=== PATIENT | male | born 1940 | race Caucasian/White ===

== ENCOUNTER 2017-05-25 10:53 | Outpatient (RCR) | payer MEDICARE ==
[2017-04-28 09:02] LABS: PLATELET COUNT, AUTOMATED 157 K/uL (150-450)
[~2017-05-25 10:53] MED LIST: ALB18R; ASCO-182 PO; ASCO-201 PO; ASPI81TA94 PO; BIMA2.5D5 OP; CALC500T6 PO; CALC600T72 PO; CHOL200074 PO; CIPR-215 PO; CIPR-345 PO; COMODPT OD; DOCU-416 PO; DOCU100C49 PO; GOLYTE PO; LATA2.5D5 OU; LEVO-85 PO; METR-160 PO; MULT-28; OM-31CAP PO; OMEG-11 PO; ONDA4TAB97 PO; OXYC-865 PO; PHEN200T32 PO; PSYL0.5210 PO; SAW450CA3 PO; TAMS0.4C25 PO; TAMS0.4C70 PO
== END 2017-06-20 ==
LOC: RAON 10:53
PROVIDERS: ATTEND Radiology Radiation Oncology
DX: Z51.0 Encounter for antineoplastic radiation therapy (principal); C61 Malignant neoplasm of prostate; J45.909 Unspecified asthma, uncomplicated; Z87.891 Personal history of nicotine dependence; R53.83 Other fatigue
CPT/HCPCS: 36415; 77332; 77385; 77790; 81001; 84153; 85025; G0463; 77290; 77295; 77300; 77336; 77470; 82040; 82247; 82310; 82374; 82435; 82565; 82947; 84075; 84132; 84155; 84295; 84450; 84460; 84520; 99212

== ENCOUNTER 2017-09-07 09:16 | Outpatient (RCR) | payer MEDICARE ==
[~2017-09-07 09:16] MED LIST changes: +CALC1TAB32 PO; +VIT-9 PO
[2017-09-07 09:21] VITALS: BP 129/90
[2017-09-08] MEDS ORDERED: DORZ10DR21 OP (13:47)
[2017-09-08] MEDS ORDERED: CHOL100059 PO (14:18)
[2017-09-08] MEDS ORDERED: CALC600T63 PO (14:18)
== END 2017-09-17 09:24 | disposition home or self-care (01) ==
LOC: SPU 09:16
PROVIDERS: ATTEND Nurse Practitioner Family
DX: C61 Malignant neoplasm of prostate (principal)
CPT/HCPCS: 36415; 84153; G0463; 99212

== ENCOUNTER → 2017-12-14 | Outpatient (CLI) | payer MEDICARE ==
[~2017-12-14] MED LIST changes: +CALC600T63 PO; +CHOL100059 PO; +DORZ10DR24 OP
[2017-12-14 10:30] VITALS: BP 162/90
== END ==
LOC: SPU 10:17
PROVIDERS: ATTEND Urology
DX: C61 Malignant neoplasm of prostate (principal)
CPT/HCPCS: 36415; 84153

== ENCOUNTER 2018-03-08 10:30 | Outpatient (RCR) | payer MEDICARE ==
[~2018-03-08 10:30] MED LIST changes: -METR-160 PO; +METR500T54 PO
[2018-03-08 10:53] VITALS: BP 160/76
== END 2018-04-20 11:02 | disposition home or self-care (01) ==
LOC: SPU 10:30
PROVIDERS: ATTEND Nurse Practitioner Family
DX: C61 Malignant neoplasm of prostate (principal)
CPT/HCPCS: 36415; 84153; G0463; 99212

== ENCOUNTER → 2018-08-09 | Outpatient (CLI) | payer MEDICARE ==
[~2018-08-09] MED LIST changes: -ALB18R; +ALB18R INH; +ASCO-246 PO; +ASCO-342 PO; +ASPI-1471 PO; -BIMA2.5D5 OP; +BIMA2.5D5 OU; +CALC-29 PO; +CHOL200051 PO; -COMODPT OD; +COMODPT OU; -DORZ10DR24 OP; +DORZ10DR24 OU; +LEUP11.26 IM; +METR500T15 PO; -METR500T54 PO; +MULT-60 PO; +OMEG-36 PO; +VIT1CAPS34 PO
== END ==
LOC: SPU 13:51
PROVIDERS: ATTEND Urology
DX: C61 Malignant neoplasm of prostate (principal)
CPT/HCPCS: 36415; 84153

== ENCOUNTER → 2018-08-17 | Outpatient (CLI) | payer MEDICARE ==
[2018-08-17 12:01] LABS: PLATELET COUNT, AUTOMATED 196 K/uL (150-450)
== END ==
LOC: LAB 11:45
PROVIDERS: ATTEND Family Medicine
DX: I10 Essential (primary) hypertension (principal)
CPT/HCPCS: 36415; 82310; 82374; 82435; 82565; 82947; 84132; 84295; 84520; 85025

== ENCOUNTER 2018-09-27 14:46 | Emergency (ER) | payer MEDICARE ==
--- NOTE | 2018-09-27 15:11 | ER Report ---
History and Physical Time Seen By MD: 15:11 Hx. of Stated Complaint: PATIENT STATES THAT ABOUT TWO WEEKS HE "BUMPPED HIS LEFT FLOREZ ON SOMETHING" STATES THAT IT HASN'T REALLY BOTHERED HIM BUT NOW IT STARTED TO HURT WHEN HE WALKS HPI/ROS CHIEF COMPLAINT: Swelling to left lower extremity HISTORY OF PRESENT ILLNESS: 77-year-old male patient presents to emergency room with complaint of swelling to the left lower extremity. Patient states that he bumped his leg 2 weeks ago. He states that he noticed it later that night with a scab. He states that he didn't do anything about it and a few days later scabbed came off but noted that it started to swell. Patient states that it has become tender over the last couple of days. He denies any fevers, chills, nausea, vomiting or diarrhea. Patient states the pain is worse with palpation as well as when he ambulates on it. Patient has not taken any medication for this. REVIEW OF SYSTEMS: Respiratory: No cough, no dyspnea. Cardiovascular: No chest pain, no palpitations. Gastrointestinal: No vomiting, no abdominal pain. Musculoskeletal: No back pain. Allergies: Coded Allergies: No Known Drug Allergies (Unverified , 08/24/16) Home Meds Active Scripts Cephalexin 500 Mg Tab (KEFLEX 500 MG TAB) 500 Mg Tablet, 500 MG PO Q6H, #28 TAB Prov:HAWK GILES FILER FINISH 09/27/18 Albuterol Sulfate (VENTOLIN HFA) 18 Gm Inh, 1-2 PUFF INH 3-4XD for 90 Days, #3 INH 9 Refills Prov:MARIBEL LONDON MD 08/17/18 Reported Medications Dorzolamide Hcl (DORZOLAMIDE HCL) 10 Ml Drops, 10 ML OP 09/27/18 Vit A/Vit C/Vit E/Zinc/Copper (PRESERVISION AREDS SOFTGEL) 1 Each Capsule, 1-2 CAP PO DAILY Pt alternates everyother day, takes 1 cap one day and then 2 caps the next. 06/02/18 Ascorbic Acid (VITAMIN C WITH NIRMALA HIPS) 500 Mg Tablet, 1 TAB PO DAILY 06/02/18 Cholecalciferol (Vitamin D3) (D-2000) 2,000 Unit Capsule, 1 CAP PO DAILY, CAPSULE 06/02/18 Calcium Carbonate/Vitamin D3 (Calcium 600 + Vit D 800 Tab) 1 Each Tablet, 1 TAB PO DAILY 06/02/18 Multivit-Min/FA/Lycopen/Lutein (Centrum Silver Men Tablet) 300 Mcg-600 Mcg-300 Mcg Tablet, 1 TAB PO DAILY 06/02/18 Aspirin (ASPIR 81) 81 Mg Tablet.dr, 1 TAB PO QDAY, TAB 06/02/18 [place]-3 Fatty Acids/Fish Oil (OMEGA 3 FISH OIL SOFTGEL) 1 Each Capsule.dr, 1 CAP PO QDAY 1040 mg daily 06/02/18 Dorzolamide Hcl (DORZOLAMIDE HCL) 10 Ml Drops, 1 DROP OU BID 09/08/17 Bimatoprost (LUMIGAN) 2.5 Ml Drops, 1 DROP OU DAILY 06/04/16 Brimonidine Tartrate/Timolol (Combigan Eye Drops) 5 Ml Drops, 1 DROP OU BID 01/02/12 Past Medical/Surgical History Patient has a past medical history of asthma, pneumonia, H. pylori, ulcers, collarbone fracture, ankle fracture, arm pain, eczema, alcohol use, prostate cancer. Patient has surgical history of eye surgery for retinal detachment, bilateral cataracts, rhinoplasty, biopsy. Patient has a family medical history of cancer, CAD. Reviewed Nurses Notes: Yes Hx Smoking: Yes (7-8 YEARS 2 PPD, quit 1976) Smoking Status: Former Smoker Hx Substance Use Disorder: No Hx Alcohol Use: Yes Constitutional Vital Sign - Last 24 Hours 09/27/18 09/27/18 09/27/18 09/27/18 15:05 15:05 15:16 15:30 Temp 98.1 Pulse 60 60 Resp 18 B/P (MAP) 158/98 158/98 (118) 154/94 (114) Pulse Ox 92 94 O2 Delivery Room Air 09/27/18 09/27/18 09/27/18 09/27/18 15:46 16:00 16:16 16:30 Pulse 59 ??? B/P (MAP) 138/94 (109) ???/??? (1664) Pulse Ox 91 09/27/18 09/27/18 09/27/18 16:30 17:00 17:30 Pulse 69 70 ??? B/P (MAP) ???/??? (1664) ???/??? (1664) ???/??? (1665) Pulse Ox 96 93 Physical Exam General Appearance: The patient is alert, has no immediate need for airway protection and no current signs of toxicity. Respiratory: Chest is non tender, lungs are clear to auscultation. Cardiac: regular rate and rhythm Gastrointestinal: Abdomen is soft and non tender, no masses, bowel sounds normal. Musculoskeletal: Neck: Neck is supple and non tender. Extremities have full range of motion and are non tender. Patient does have swelling is fluctuant to the left lower leg, tender to touch. Skin: No rashes or lesions. DIFFERENTIAL DIAGNOSIS: After history and physical exam differential diagnosis was considered for abscess, hematoma, fluid collection. Medical Decision Making Data Points Result Diagram: 09/27/18 1538 09/27/18 1538 Laboratory Hematology Test 09/27/18 15:38 Red Blood Count 4.51 M/uL (4.00-5.60) Mean Corpuscular Volume 94.3 fL (80.0-96.0) Mean Corpuscular Hemoglobin 32.0 pg (26.0-33.0) Mean Corpuscular Hemoglobin Concent 33.9 g/dL (32.0-36.0) Red Cell Distribution Width 13.0 % (11.5-14.5) Mean Platelet Volume 8.2 fL (7.2-11.1) Neutrophils (%) (Auto) 59.6 % (39.4-72.5) Lymphocytes (%) (Auto) 18.6 % (17.6-49.6) Monocytes (%) (Auto) 10.3 % (4.1-12.4) Eosinophils (%) (Auto) 10.3 % (0.4-6.7) Basophils (%) (Auto) 1.2 % (0.3-1.4) Nucleated RBC Relative Count (auto) 0.0 /100WBC Neutrophils # (Auto) 2.8 K/uL (2.0-7.4) Lymphocytes # (Auto) 0.9 K/uL (1.3-3.6) Monocytes # (Auto) 0.5 K/uL (0.3-1.0) Eosinophils # (Auto) 0.5 K/uL (0.0-0.5) Basophils # (Auto) 0.1 K/uL (0.0-0.1) Nucleated RBC Absolute Count (auto) 0.00 K/uL Sodium Level 139 mmol/L (137-145) Potassium Level 3.8 mmol/L (3.5-5.0) Chloride Level 108 mmol/L (98-107) Carbon Dioxide Level 21 mmol/L (22-30) Blood Urea Nitrogen 15 mg/dl (9-21) Creatinine 0.80 mg/dl (0.66-1.25) Glomerular Filtration Rate Calc > 60.0 Random Glucose 85 mg/dl (75-110) Calcium Level 9.3 mg/dl (8.4-10.2) Total Bilirubin 0.3 mg/dl (0.2-1.3) Aspartate Amino Transf (AST/SGOT) 20 U/L (0-35) Alanine Aminotransferase (ALT/SGPT) 24 U/L (0-56) Alkaline Phosphatase 80 U/L (0-126) Total Protein 6.8 g/dl (6.3-8.2) Albumin 4.0 g/dl (3.5-5.0) Chemistry Test 09/27/18 15:38 White Blood Count 4.8 k/uL (4.5-11.0) Red Blood Count 4.51 M/uL (4.00-5.60) Hemoglobin 14.4 g/dL (14.0-18.0) Hematocrit 42.5 % (42.0-52.0) Mean Corpuscular Volume 94.3 fL (80.0-96.0) Mean Corpuscular Hemoglobin 32.0 pg (26.0-33.0) Mean Corpuscular Hemoglobin Concent 33.9 g/dL (32.0-36.0) Red Cell Distribution Width 13.0 % (11.5-14.5) Platelet Count 172 K/uL (150-450) Mean Platelet Volume 8.2 fL (7.2-11.1) Neutrophils (%) (Auto) 59.6 % (39.4-72.5) Lymphocytes (%) (Auto) 18.6 % (17.6-49.6) Monocytes (%) (Auto) 10.3 % (4.1-12.4) Eosinophils (%) (Auto) 10.3 % (0.4-6.7) Basophils (%) (Auto) 1.2 % (0.3-1.4) Nucleated RBC Relative Count (auto) 0.0 /100WBC Neutrophils # (Auto) 2.8 K/uL (2.0-7.4) Lymphocytes # (Auto) 0.9 K/uL (1.3-3.6) Monocytes # (Auto) 0.5 K/uL (0.3-1.0) Eosinophils # (Auto) 0.5 K/uL (0.0-0.5) Basophils # (Auto) 0.1 K/uL (0.0-0.1) Nucleated RBC Absolute Count (auto) 0.00 K/uL Glomerular Filtration Rate Calc > 60.0 Calcium Level 9.3 mg/dl (8.4-10.2) Total Bilirubin 0.3 mg/dl (0.2-1.3) Aspartate Amino Transf (AST/SGOT) 20 U/L (0-35) Alanine Aminotransferase (ALT/SGPT) 24 U/L (0-56) Alkaline Phosphatase 80 U/L (0-126) Total Protein 6.8 g/dl (6.3-8.2) Albumin 4.0 g/dl (3.5-5.0) Microbiology Microbiology Date/Time Source Procedure Growth Status 09/27/18 17:28 Abscess Gram Stain - Final Resulted 09/27/18 17:28 Abscess Wound Culture Pending Resulted 09/27/18 17:28 Abscess Anaerobic Culture Pending Resulted EKG/Imaging Imaging CT TIB/FIB W/ LT COMPARISON: None. HISTORY: swelling, pain, abscess vs hematoma. TECHNIQUE: Postcontrast axial CT of the left lower leg with coronal and sagittal reformats. One of the following dose optimization techniques was utilized in the performance of this exam: automated exposure control; adjustment of the mA and/or kV according to patient size; or use of iterative reconstruction technique. Specific details can be referenced in the facility's radiology CT exam operational policy. CONTRAST: 75 mL Isovue-370 was given intravenously. FINDINGS: BONES : No acute appearing fractures. No significant arthropathy or degenerat alin changes. No significant bone lesions. Small bone islands in the femoral condyles. FLUID: No appreciable effusion or drainable fluid collection. SOFT TISSUES: Diffuse subcutaneous fat edema especially distally. No drainable soft tissue fluid collection. Advanced diffuse vascular calcifications in the tibialis anterior posterior, mild peroneal artery calcifications. Marked fatty atrophy of the medial soleus musculature and moderate fatty atrophy of the medial gastrocnemius musculature, likely related to remote partial muscle tears. OTHER: Negative. IMPRESSION: 1. No evidence of abscess, hematoma or other drainable fluid collection. 2. Diffuse soft tissue edema in the left lower leg. No evidence of osteomyelitis. 3. Peripheral vascular disease. 4. Partial fatty atrophy of the soleus and medial gastrocnemius muscles.. Report Dictated By: Shon Bishop at 09/27/2018 4:46 PM Report E-Signed By: Shon Bishop at 09/27/2018 4:54 PM ED Course/Re-evaluation ED Course Patient was admitted to an exam room, history and physical were obtained. Differential diagnoses were considered. On examination lungs are clear, heart is regular, abdomen soft nontender. An IV was started, a CBC, CMP were done. A CT scan of the left lower leg was done with contrast. Results showed no obvious fluid collection, but did note left lower extremity edema. I discussed the findings with patient. On exam patient does have a fluctuant area that is tender to touch, lateral aspect of the left lower leg. An I&D was done as described below. Patient did not have any purulent drainage, did have a serous drainage. I did collect a aerobic and anaerobic culture. We will contact him with the results of the culture. We will go ahead and place him on Keflex, 4 times a day for 7 days. We will have him follow-up with his primary care provider either or Wednesday this week. Discusses patient who verbalized understanding and agreement. Patient did have noticeable edema when I was trying to express fluid out of the abscess. Procedure: Abscess drainage. The patient's abscess was located on the left lower extremity. I obtained verbal consent from the patient to drain the abscess who was informed about the possibility of bleeding and pain. The abscess was incised with a scalpel and a large amount of serous drainage was expressed. I irrigated placed some packing. The patient tolerated the procedure well. The procedure was performed by myself. Decision to Disposition Date: September 27, 2018 Decision to Disposition Time: 17:33 Depart Departure Latest Vital Signs Vital Signs Date Time Temp Pulse Resp B/P (MAP) Pulse Ox O2 Delivery O2 Flow Rate FiO2 09/27/18 17:30 ?/??? (1665) 09/27/18 17:00 93 5/7/19 15:05 98.1 18 Room Air Impression: Primary Impression: Abscess Condition: Improved Disposition: HOME OR SELF-CARE Referrals: MARIBEL LONDON MD (PCP) New Scripts Cephalexin 500 Mg Tab (KEFLEX 500 MG TAB) 500 Mg Tablet 500 MG PO Q6H, #28 TAB Prov: HAWK GILES 09/27/18 Patient Instructions: Abscess (ED), Abscess Incision and Drainage (DC) Additional Instructions: Leave the packing in place for the next couple of days. Follow up with Dr. London on or [place] on Wednesday. Return to the ER if condition worsens. We are culturing what we got out of the wound and will call if we need to change antibiotics. Limit activity by pain. You may change the dressing as needed. HAWK GILES September 27, 2018 15:11
[2018-09-27] MEDS ORDERED: DORZ10DR24 OP (15:18)
[2018-09-27] MEDS ORDERED: IOPAMIDOL 76% 150 ML INFUS BTL 150 ML ONE (15:46)
[2018-09-27 15:51] LABS: PLATELET COUNT, AUTOMATED 172 K/uL (150-450)
--- NOTE | 2018-09-27 16:58 | RADIOLOGY IMAGING REPORT ---
FACILITY: [facility] PATIENT NAME: Shon Mace : 1940 MR: [id number] V: [id number] EXAM DATE: ORDERING PHYSICIAN: HAWK GILES TECHNOLOGIST: Location: [facility] [place] Patient: Shon Mace : 1940 Visit/Account:[id number] Date of Sevice: 09/27/2018 CT TIB/FIB W/ LT COMPARISON: None. HISTORY: swelling, pain, abscess vs hematoma. TECHNIQUE: Postcontrast axial CT of the left lower leg with coronal and sagittal reformats. One of the following dose optimization techniques was utilized in the performance of this exam: auto mated exposure control; adjustment of the mA and/or kV according to patient size; or use of iterative reconstruction technique. Specific details can be referenced in the facility's radiology CT exam op erational policy. CONTRAST: 75 mL Isovue-370 was given intravenously. FINDINGS: BONES : No acute appearing fractures. No significant arthropathy or degenerative changes. No signi ficant bone lesions. Small bone islands in the femoral condyles. FLUID: No appreciable effusion or drainable fluid collection. SOFT TISSUES: Diffuse subcutaneous fat edema especially distally. No drainable soft tissue fluid col lection. Advanced diffuse vascular calcifications in the tibialis anterior posterior, mild peroneal a rtery calcifications. Marked fatty atrophy of the medial soleus musculature and moderate fatty atroph y of the medial gastrocnemius musculature, likely related to remote partial muscle tears. OTHER: Negative. IMPRESSION: 1. No evidence of abscess, hematoma or other drainable fluid collection. 2. Diffuse soft tissue edema in the left lower leg. No evidence of osteomyelitis. 3. Peripheral vascular disease. 4. Partial fatty atrophy of the soleus and medial gastrocnemius muscles.. Report Dictated By: Shon Bishop at 09/27/2018 4:46 PM Report E-Signed By: Shon Bishop at 09/27/2018 4:54 PM WSN:[id number]
[2018-09-27] MEDS ORDERED: CEPH500T7 PO (17:31)
== END 2018-09-27 17:39 | disposition home or self-care (01) ==
LOC: ER 15:10
DX: L02.416 Cutaneous abscess of left lower limb (principal)
CPT/HCPCS: 10060; 73701; 85025; 87070; 87073; 87205; 99284; Q9967; 82040; 82247; 82310; 82374; 82435; 82565; 82947; 84075; 84132; 84155; 84295; 84450; 84460; 84520